=== PATIENT | female | born 1985 | race Caucasian/White ===

== ENCOUNTER 2020-12-06 08:57 | Emergency (ER) | payer OTHER ==
[2020-12-06 09:02] VITALS: BP 94/65; PULSE 71; TEMP 98; BMI 24.0
[2020-12-06] MEDS ORDERED: DIPHTH,PERTUSS(ACELL),TET 0.5 ML DISP.SYRIN IM ONE ×2 (09:42→10:13)
== END 2020-12-06 10:33 | disposition home or self-care (01) ==
LOC: JERFT 08:57 → JER 08:57 → JERFT 10:33
PROC: 0HQKXZZ Repair Right Lower Leg Skin, External Approach (ICD-10-PCS; principal; 2020-12-06)
PROC: 3E0234Z Introduction of Serum, Toxoid and Vaccine into Muscle, Percutaneous Approach (ICD-10-PCS; 2020-12-06)
DX: S81.011A Laceration without foreign body, right knee, initial encounter (principal)
CPT/HCPCS: 12001-25; 73562-TC-RT-FY; 90471; 90715; 99284-25

== ENCOUNTER 2020-12-15 06:58 | Emergency (ER) | payer OTHER ==
[2020-12-15 07:19] VITALS: BP 101/60; PULSE 89; TEMP 97.6; BMI 20.7
== END 2020-12-15 07:43 | disposition home or self-care (01) ==
LOC: JERFT 06:58 → JER 06:58 → JERFT 07:43
DX: Z48.02 Encounter for removal of sutures (principal)
CPT/HCPCS: 99281-25

== ENCOUNTER 2021-02-15 10:06 | Emergency (ER) | payer OTHER ==
[2021-02-15 10:14] VITALS: BMI 19.2
[2021-02-15] MEDS ORDERED: LACTATED RINGERS SOLUTION 1000 ML INFUS.BAG IV ONE (11:24)
[2021-02-15 12:15] LABS: BASO % 0.6 % (0-2.0); EOS % 1.6 % (0-4.5); HEMATOCRIT 37.5 % (32.4-45.2); HEMOGLOBIN 12.6 GM/dL (10.7-15.3); LYMPH % 14.5 % (8-40); MCH 30.5 pg (25.7-33.7); MCHC 33.6 g/dl (32.0-36.0); MEAN CELL VOLUME 90.7 fl (80-96); MEAN PLT VOLUME 10.7 fl (7.5-11.1); NEUT % 77.3 % (42.8-82.8); PLATELET COUNT 169 10^3/uL (134-434); RBC 4.13 M/mm3 (3.60-5.2); RDW 12.7 % (11.6-15.6); WHITE BLOOD COUNT 10.8 K/mm3 (4.0-10.0)
[2021-02-15 12:23] LABS: CHLORIDE 108 mmol/L (98-107); SODIUM 141 mmol/L (136-145)
[2021-02-15 12:25] LABS: CALCIUM 8.7 mg/dL (8.5-10.1)
[2021-02-15 12:26] LABS: ALBUMIN 3.9 g/dl (3.4-5.0); ANION GAP 6 MMOL/L (8-16); BLOOD UREA NITROGEN 11.7 mg/dL (7-18); CO2 27 mmol/L (21-32); GLUCOSE,RANDOM 65 mg/dL (74-106)
[2021-02-15 12:29] LABS: CREATININE 0.6 mg/dL (0.55-1.3); SGOT/AST 22 U/L (15-37); SGPT/ALT 22 U/L (13-61)
[2021-02-15 12:30] LABS: BILIRUBIN,TOTAL 0.6 mg/dL (0.2-1); TOT PROT 7.5 g/dl (6.4-8.2)
[2021-02-15 12:32] LABS: ALK PHOS 65 U/L (45-117)
[2021-02-15 13:15] VITALS: BP 98/60; PULSE 88; TEMP 98
== END 2021-02-15 13:35 | disposition home or self-care (01) ==
LOC: JER 10:06
DX: I95.0 Idiopathic hypotension (principal); R00.2 Palpitations
CPT/HCPCS: 36415; 71046-TC-FY; 80053; 82550; 82553; 84439; 84443; 84484; 85025; 93005; 93010; 99285-25

== ENCOUNTER 2022-12-10 10:35 | Emergency (ER) | payer OTHER ==
[2022-12-10 10:45] VITALS: RESP 18; TEMP 98.1; BMI 23.8
[2022-12-10] MEDS ORDERED: LIDOCAINE 5% TOPICAL PATCH TP ONE (11:21)
[2022-12-10] MEDS ORDERED: ACETAMINOPHEN 500 MG TABLET (FP) PO ONE (11:21)
[2022-12-10] MEDS ORDERED: METHOCARBAMOL 750 MG TAB PO ONE (11:33)
[2022-12-10] MEDS ORDERED: ACETAMINOPHEN 325 MG TABLET (FP) ONE (11:39)
[2022-12-10] MEDS ORDERED: METHOCARBAMOL 500 MG TABLET ONE (11:39)
[2022-12-10] MEDS ORDERED: LIDOCAINE 5% TOPICAL PATCH ONE (11:39)
[2022-12-10] MEDS ORDERED: KETOROLAC TROMETHAMINE 30 MG/1 ML VIAL IM ONE (13:35)
[2022-12-10] MEDS ORDERED: KETOROLAC TROMETHAMINE 30 MG/1 ML VIAL ONE (14:20)
[2022-12-10 14:30] VITALS: BP 116/84; PULSE 84
[2022-12-10] MEDS ORDERED: LIDOCAINE PATCH REMOVAL MC ONE (22:00)
== END 2022-12-10 14:38 | disposition home or self-care (01) ==
LOC: JER 10:35
PROC: 3E023GC Introduction of Other Therapeutic Substance into Muscle, Percutaneous Approach (ICD-10-PCS; principal; 2022-12-10)
DX: M54.2 Cervicalgia (principal); M25.511 Pain in right shoulder; V49.40XA Driver injured in collision with unspecified motor vehicles in traffic accident, initial encounter
CPT/HCPCS: 72125-TC; 73030-TC-LT-FY; 99284-25

== ENCOUNTER 2023-05-13 11:19 | Emergency (ER) | payer OTHER ==
[2023-05-13 11:33] VITALS: TEMP 98.5; BMI 19.9
[2023-05-13] MEDS ORDERED: ACETAMINOPHEN 1000 MG/100 ML BAG IVPB ONE (12:18)
[2023-05-13] MEDS ORDERED: MAG HYDROX/AL HYDROX/SIMETH -MYLANTA- ORAL SUSPENSION PO ONE (12:19)
[2023-05-13] MEDS ORDERED: FAMOTIDINE 20 MG/50 ML IVPB 20 MG/50 ML MG IVPB ONE (12:19)
[2023-05-13] MEDS ORDERED: LACTATED RINGERS SOLUTION 1000 ML INFUS.BAG IV ONE (12:25)
[2023-05-13] MEDS ORDERED: FAMOTIDINE 10 MG/ML VIAL IVPB ONE (12:27)
[2023-05-13] MEDS ORDERED: ACETAMINOPHEN INJECTION 100 ML IVPB ONE (12:27)
[2023-05-13] MEDS ORDERED: MAG HYDROX/AL HYDROX/SIMETH 30 ML UNIT-DOSE CUP ONE (12:27)
[2023-05-13 12:57] LABS: HEMATOCRIT 40.9 % (32.4-45.2); HEMOGLOBIN 13.6 GM/dL (10.7-15.3); MCHC 33.3 g/dl (32.0-36.0); MEAN CELL VOLUME 90.1 fl (80-96); MEAN PLT VOLUME 10.2 fl (7.5-11.1); PLATELET COUNT 139 10^3/uL (134-434); RBC 4.54 M/mm3 (3.60-5.2); RDW 12.5 % (11.6-15.6); WHITE BLOOD COUNT 10.9 K/mm3 (4.0-10.0)
[2023-05-13 13:20] LABS: POTASSIUM 3.9 mmol/L (3.5-5.1)
[2023-05-13 13:23] LABS: BLOOD UREA NITROGEN 13.5 mg/dL (7-18); CALCIUM 8.9 mg/dL (8.5-10.1)
[2023-05-13 13:26] LABS: CREATININE 0.5 mg/dL (0.55-1.3)
[2023-05-13 13:28] LABS: BILIRUBIN,TOTAL 1.6 mg/dL (0.2-1); TOT PROT 7.6 g/dl (6.4-8.2)
[2023-05-13 14:23] LABS: ANISOCYTOSIS 0; MACROCYTOSIS 0
[2023-05-13 15:56] VITALS: BP 94/43; PULSE 83; RESP 16
== END 2023-05-13 16:07 | disposition home or self-care (01) ==
LOC: JER 11:19
PROC: 3E033GC Introduction of Other Therapeutic Substance into Peripheral Vein, Percutaneous Approach (ICD-10-PCS; principal; 2023-05-13)
PROC: 3E033NZ Introduction of Analgesics, Hypnotics, Sedatives into Peripheral Vein, Percutaneous Approach (ICD-10-PCS; 2023-05-13)
DX: R07.89 Other chest pain (principal); R11.2 Nausea with vomiting, unspecified; R19.7 Diarrhea, unspecified; Z20.822 Contact with and (suspected) exposure to COVID-19
CPT/HCPCS: 0241U-QW; 36415; 71046-TC-FY; 80053; 84484; 84703; 85025; 93005; 93010; 99285-25

== ENCOUNTER 2024-02-20 12:30 | Emergency (ER) | payer OTHER ==
[2024-02-20 12:36] VITALS: BP 120/67; PULSE 75; RESP 19; TEMP 98.2; BMI 20.1
[2024-02-20] MEDS ORDERED: KETOROLAC TROMETHAMINE 30 MG/1 ML VIAL ONE (14:29)
[2024-02-20] MEDS: KETOROLAC TROMETHAMINE 30 MG/1 ML VIAL IM ONE (14:40)
[2024-02-20 14:46] LABS: BASO % 0.4 % (0-2.0); EOS % 0.5 % (0-4.5); HEMATOCRIT 38.3 % (32.4-45.2); HEMOGLOBIN 12.7 GM/dL (10.7-15.3); LYMPH % 21.2 % (8-40); MEAN CELL VOLUME 90.9 fl (80-96); MONO % 6.4 % (3.8-10.2); NEUT % 71.5 % (42.8-82.8); PLATELET COUNT 164 10^3/uL (134-434); RBC 4.22 M/mm3 (3.60-5.2); RDW 12.7 % (11.6-15.6); WHITE BLOOD COUNT 10.8 K/mm3 (4.0-10.0)
[2024-02-20 15:03] LABS: POTASSIUM 4.1 mmol/L (3.5-5.1)
[2024-02-20 15:07] LABS: ALBUMIN 3.7 g/dl (3.4-5.0); BLOOD UREA NITROGEN 17.3 mg/dL (7-18); CALCIUM 8.7 mg/dL (8.5-10.1)
[2024-02-20 15:10] LABS: CREATININE 0.6 mg/dL (0.55-1.3)
[2024-02-20 15:11] LABS: BILIRUBIN,TOTAL 0.6 mg/dL (0.2-1); TOT PROT 7.3 g/dl (6.4-8.2)
== END 2024-02-20 15:55 | disposition home or self-care (01) ==
LOC: JERFT 12:30 → JER 12:30
PROC: 3E0133Z Introduction of Anti-inflammatory into Subcutaneous Tissue, Percutaneous Approach (ICD-10-PCS; principal; 2024-02-20)
DX: R07.89 Other chest pain (principal); R00.2 Palpitations
CPT/HCPCS: 36415; 80053; 84439; 84443; 84484; 85025; 93005; 93010; 99284-25